=== PATIENT | female | born 1965 | race Caucasian/White ===

== ENCOUNTER → 2021-06-17 | Outpatient (CLI) | payer MEDICAID ==
[~2021-06-17] MED LIST: ACET500T68 PO; BACI1PAC4 TP; HYDR-2761 PO; KETO10TA PO; NAPR500T8 PO; PYRI60TA2 PO
--- NOTE | 2021-06-17 12:11 | RAD ---
Digital Mammogram Bilateral History: Routine screening Technique: 2-D digital CC and MLO views were obtained. CAD - computer aided detection was utilize d. Comparison: None. The patient's last mammogram was performed about 15 years ago. Findings: Breast Tissue Density B : There are scattered areas of fibroglandular density There are no suspicious masses, malignant appearing calcifications, or areas of architectural distort ion. Impression: No evidence of malignancy. Assessment: BI-RADS Category 1: Negative. Recommendation: Routine screening mammograms. The patient will receive a letter with the results in the mail. Patient information will be entered i nto the mammography reminder system with a target recall date for the next mammogram. A reminder milly er will be generated. Electronically signed by: Sima Bailey MD (06/17/2021 12:08 PM) [id number]
== END ==
LOC: MAMMO 09:25
PROVIDERS: ATTEND Family Medicine
DX: Z12.31 Encounter for screening mammogram for malignant neoplasm of breast (principal)
CPT/HCPCS: 77067

== ENCOUNTER → 2021-06-29 | Outpatient (CLI) | payer MEDICAID ==
[~2021-06-29] MED LIST changes: -HYDR-2761 PO
[2021-06-29 11:27] LABS: BASO % 1 % (0-3); EOS # 0.2 x10^3/uL (0.0-0.7); EOS % 3 % (0-3); HEMATOCRIT 43.6 % (36.0-47.0); HEMOGLOBIN 14.6 g/dL (12.0-15.5); LYMPH # 2.7 x10^3/uL (1.0-4.8); LYMPH % 39 % (24-48); MEAN CORPUSCULAR HEMOGLOBIN 31 pg (25-35); MEAN CORPUSCULAR HGB CONC 34 g/dL (31-37); MEAN CORPUSCULAR VOLUME 92 fL (79-100); MONO # 0.4 x10^3/uL (0.0-1.1); MONO % 6 % (0-9); NEUT # 3.5 x10^3/uL (1.8-7.7); NEUT % 51 % (31-73); PLATELET COUNT 206 x10^3/uL (140-400); RED BLOOD COUNT 4.72 x10^6/uL (3.50-5.40); RED CELL DISTRIBUTION WIDTH 13.4 % (11.5-14.5); WHITE BLOOD COUNT 6.9 x10^3/uL (4.0-11.0)
[2021-06-29 11:40] LABS: PROTHROMBIN TIME PATIENT 12.6 SEC (11.7-14.0)
[2021-06-29 11:43] LABS: CALCIUM 8.9 mg/dL (8.5-10.1); CREATININE 0.8 mg/dL (0.6-1.0); GFR 73.9
--- NOTE | 2021-06-29 15:47 | EKG ---
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
== END ==
LOC: SURGPAT 10:10
PROVIDERS: ATTEND Plastic Surgery
DX: Z01.812 Encounter for preprocedural laboratory examination (principal); Z20.822 Contact with and (suspected) exposure to COVID-19
CPT/HCPCS: 36415; 80048; 85025; 85610; 85730; 93005; U0003; U0005

== ENCOUNTER 2021-06-30 09:33 | Day surgery (SDC) | payer MEDICAID ==
[~2021-06-30] VITALS: Ht 170.2 cm; Wt 54.5 kg
[~2021-06-30 09:33] MED LIST changes: -ACET500T68 PO; -BACI1PAC4 TP; +CLINDAMYCIN 900MG PREMIX 50 ML IV PRN; +HYDROmorphone 2 MG/ML INJ. IVP PRN; +IV RINGERS,LACTATED 1000ML 1,000 ML IV SCH; -KETO10TA PO; +MORPHINE SULFATE 2 MG/ML INJ. IVP PRN; -NAPR500T8 PO; +PROCHLORPERAZINE 10 MG/2 ML VIAL. IVP PRN; -PYRI60TA2 PO; +fentaNYL PF VIAL 100 MCG/2 ML VIAL IVP PRN
[2021-06-30] MEDS ORDERED: KETO10TA PO (09:58)
[2021-06-30] MEDS ORDERED: PYRI60TA2 PO (09:58)
[2021-06-30] MEDS ORDERED: NAPR500T8 PO (09:58)
[2021-06-30 10:02] VITALS: BP 161/74
[2021-06-30] MEDS ORDERED: DEXAMETHASONE SOD PHOS 4 MG/ML VIAL ONE (10:55)
[2021-06-30] MEDS ORDERED: ONDANSETRON PF 4 MG/2 ML VIAL. ONE (10:55)
[2021-06-30] MEDS ORDERED: PROPOFOL 10 MG/ML (20ML) VIAL. IV ONE ×2 (10:55→11:20)
[2021-06-30] MEDS ORDERED: LIDOCAINE 2% PF 5 ML VIAL. ONE (10:55)
[2021-06-30] MEDS ORDERED: SEVOFLURANE 31 TO 60 MINUTES. IH ONE (10:55)
[2021-06-30] MEDS ORDERED: fentaNYL PF VIAL 100 MCG/2 ML VIAL ONE ×2 (10:56→14:05)
[2021-06-30] MEDS ORDERED: BACITRACIN TOPICAL OINT PACKET. TP ONE (10:57)
[2021-06-30] MEDS ORDERED: LIDOCAINE 1%/EPI 1:100,000 20 ML VIAL. ONE (10:58)
[2021-06-30] MEDS ORDERED: ePHEDrine PF IN SALINE 50 MG/10 ML SYRINGE. IV ONE (11:28)
[2021-06-30] MEDS ORDERED: PHENYLEPHRINE 10 MG/ML VIAL. ONE (11:29)
[2021-06-30] MEDS ORDERED: GLYCOPYRROLATE 1 MG/5 ML VIAL. ONE (11:31)
[2021-06-30] MEDS ORDERED: PHENYLEPHRINE in 0.9% NACL PF 1 MG/10 ML SYRINGE. IV ONE (11:53)
[2021-06-30] MEDS ORDERED: BACI1PAC4 TP (11:58)
[2021-06-30] MEDS ORDERED: ACET500T68 PO (11:58)
--- NOTE | 2021-06-30 12:04 | PDOC4 ---
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 The patient was brought to the operating room and placed on the OR table in the supine position. A timeout was completed verifying the correct patient and correct procedure. SCDs were placed. IV antibiotics were provided. General anesthesia was induced. The patient's face was cleansed with chlorhexidine. It was draped in the usual sterile fashion. A #15 scalpel was used to excise the visible 6mm diameter lesion at the medial tip of the patient's nose including an approximate 3 mm margin. The superior lesion was labeled with short suture and the 9 o'clock position was labeled with a long suture. The specimen was then sent to pathology for frozen section analysis. The first pass resulted in positive margins from 3:00 to 9:00. A caliper was used to alma 2 mm margins and the entire unit was reexcised. This was also sent for frozen section analysis. The second pass frozen section analysis returned with clear margins. Hemostasis was then assessed and assured with cautery. The final size of the defect was 0.9 x 1.1 x 0.3 cm A caliper was used to design a bilobed flap based on the right lateral nasal dorsum. The first lobe was created to the width of the defect and the second lobe was also created the width of the original defect, giving a total defect area of 1.98cm. A scalpel was used to undermine the flap deeply, just above the nasal muscle. The surrounding region was widely undermined with tenotomy scissors until a tension-free closure could be achieved. Hemostasis was again achieved with electrocautery. The vertical incision from the second lobe was closed with a running 6-0 Prolene suture. The flaps were trimmed and contoured. A back cut was made lateral to the original defect to remove a standing skin deformity. The skin of the flaps was closed primarily with 6-0 Prolene suture in a simple interrupted fashion. Antibiotic ointment, Xeroform gauze, a trimmed 4 x 4 gauze, and Steri-Strips were applied. The patient tolerated the procedure well and was transferred to the PACU in stable condition. LIZET MACIAS MD Jun 30, 2021 12:04
[2021-06-30] MEDS ORDERED: BALANCED SALT IRRIG OPHTH SOLN 15 ML BOTTLE. ONE (12:49)
[2021-06-30] MEDS: fentaNYL PF VIAL 100 MCG/2 ML VIAL IVP PRN ×2 (14:12→14:28)
[2021-06-30] MEDS ORDERED: ACETAMINOPHEN 500 MG TABLET PO ONE (14:30)
[2021-06-30 14:45] VITALS: BP 101/65
--- NOTE | 2021-07-01 18:08 | PATHOLOGY ---
[facility] Accession Number: [id number] . 01 Material submitted: . PART A: nose - RIGHT NARE LESION SHORT STITCH SUPERIOR, LONG STITCH LATERAL- FS. Modifiers: right PART B: nose - RE-EXCISION BASAL CELL OF NOSE, SHORT STITCH 3:00, LONG STITCH 12:00 . 01 Clinician provided ICD-10: n . 01 Clinical history: . FOR A- SKIN CANCER; EXCISION SKIN CANCER NOSE WITH FROZEN SECTION FOR B- CA R NARE; EXCISION CANCER R NARE . 02 Frozen section diagnosis: . INTRAOPERATIVE CONSULTATION WITH FROZEN SECTION A. Skin, right nose lesion, excision: - Nodular basal cell carcinoma; 12:00 margin clear. Tumor involvement of 3:00, 6:00, 9:00, and deep margins. . The results are reported to Dr. Garcia in the operating room. . B. Skin, basal cell nose, re-excision: - Recent biopsy site, margins free of neoplasm. . The results are reported to Dr. Garcia in the operating room. . . INTRAOPERATIVE CONSULTATION GROSS DESCRIPTION A. The specimen is received fresh for intraoperative consultation and is designated "right nose lesion, large stitch lateral, short stitch superior". This consists of a rounded segment of [place] skin measuring approximately 0.7 cm in diameter and up to 0.3 cm in thickness. There is a long suture attached at one point of the margin which denotes the lateral margin. There is a short stitch attached at another point of the margin which denotes the superior margin. There is a centrally located slightly raised pale inman lesion which is close to all margins. The 12-3-6:00 margin is inked with black ink. The 6-9:00 margin is inked with blue ink. The 9-12:00 margin is inked with orange ink. The specimen is sectioned perpendicular to the 12-6:00 axis and submitted entirely for frozen section as FSA1. . B. The specimen is received fresh and is designated "re-excision basal cell of nose". This consists of a rounded segment of [place] skin measuring up to 1.0 x 0.9 x 0.3 cm in greatest dimension. There is a central rounded hemorrhagic defect representing the previous biopsy site, which measures up to approximately 0.6 cm in diameter. There is a long suture attached at one point of the margin to note the 12:00 margin. There is a short suture attached at the 3:00 margin. The 12-3-6:00 margin is inked with black ink. The 6-9:00 margin is inked with blue ink. The 9-12:00 margin is inked with orange ink. The specimen is serially sectioned perpendicular to the 12-6:00 axis and is submitted for frozen section as FSB1. . (JPM:elastic attacher coverstitch; 06/30/2021) . Frozen section performed at [facility], [address] [facility] [facility] [place] [address]. Anya/MADINAR . 02 Diagnosis: A. Skin, right nose lesion excision: - NODULAR BASAL CELL CARCINOMA; 12:00 MARGIN CLEAR; TUMOR INVOLVEMENT OF 3:00, 6:00, 9:00, AND DEEP MARGINS. . B. Skin and subcutaneous tissue, basal cell nose re-excision: - Recent biopsy site showing recent hemorrhage and coagulative changes - no residual basal cell carcinoma identified. - Margins of excision free of malignancy. . (JPM:mml; 07/01/2021) [facility] 07/01/2021 1240 Local . 02 Electronically signed: . Ney Neff MD, Pathologist NPI- [id number] . 01 Gross description: . A, B. PLEASE SEE FROZEN SECTION GROSS DESCRIPTION [facility] 07/01/2021 1241 Local . 02 Pathologist provided ICD-10: C44.311 . 02 CPT . 147106, 957758, 546015, [id number] Specimen Comment: A courtesy copy of this report has been sent to [phone] Specimen Comment: [id number] Specimen Comment: Report sent to / DR ANTONIO Specimen Comment: A duplicate report has been generated due to demographic updates. Performed at: 01 [facility] [address] [facility] [address] [address], [place] [id number] MD Ravi Middleton MD Phone: [phone] Performed at: 02 [facility] [address] [place], [place] [id number] MD Ney Neff MD Phone: [phone]
== END 2021-06-30 15:20 | disposition home or self-care (01) ==
LOC: SURG 09:33
PROVIDERS: ATTEND Plastic Surgery
DX: C44.311 Basal cell carcinoma of skin of nose (principal); J45.909 Unspecified asthma, uncomplicated; M19.90 Unspecified osteoarthritis, unspecified site; F41.9 Anxiety disorder, unspecified; Z90.710 Acquired absence of both cervix and uterus; Z98.890 Other specified postprocedural states; Z79.899 Other long term (current) drug therapy; Z87.891 Personal history of nicotine dependence
CPT/HCPCS: 14060; A4930; A6223; A6258; A6402; J1100; J2370; J2405; J2704; J3010; J3490; A4452; A4657

== ENCOUNTER → 2021-07-03 | Outpatient (CLI) | payer MEDICAID ==
[2021-06-30 14:45] VITALS: BP 101/65
[~2021-07-03] MED LIST changes: +ACET500T68 PO; +BACI1PAC4 TP; -CLINDAMYCIN 900MG PREMIX 50 ML IV PRN; -HYDROmorphone 2 MG/ML INJ. IVP PRN; -IV RINGERS,LACTATED 1000ML 1,000 ML IV SCH; +KETO10TA PO; -MORPHINE SULFATE 2 MG/ML INJ. IVP PRN; +NAPR500T8 PO; -PROCHLORPERAZINE 10 MG/2 ML VIAL. IVP PRN; +PYRI60TA2 PO; -fentaNYL PF VIAL 100 MCG/2 ML VIAL IVP PRN
--- NOTE | 2021-07-03 09:19 | RAD ---
EXAMINATION: US ABDOMEN COMPLETE CLINICAL HISTORY: Cholelithiasis. TECHNIQUE: Grayscale sonographic imaging of the abdomen obtained with color Doppler imaging and spect ral Doppler analysis as indicated. COMPARISON: None FINDINGS: Pancreas: Grossly unremarkable on limited evaluation. Liver: - Echotexture: Normal, homogeneous. - Echogenicity: Normal - Surface contour: Smooth - Lesions: None Biliary: No intrahepatic biliary duct dilation. - CBD: 7 mm. - Gallbladder: Echogenic shadowing gallstones obscure much of the gallbladder. No evidence of wall thickening or pericholecystic fluid on limited evaluation. Spleen: - Craniocaudal length: 8.0 cm. - Lesions: None Right Kidney: - Renal length: 10.5 cm - Parenchyma: Normal parenchymal echogenicity. Normal parenchymal thickness. - Collecting system: No hydronephrosis. - Calculus: No echogenic, shadowing calculus. - Lesion: None Left Kidney: - Renal length: 11.2 cm - Parenchyma: Normal parenchymal echogenicity. Normal parenchymal thickness. - Collecting system: No hydronephrosis. - Calculus: No echogenic, shadowing calculus. - Lesion: None IVC: Imaged segments patent. Abdominal Aorta: Imaged segments patent. Ascites: None. IMPRESSION: Cholelithiasis without evidence of acute cholecystitis on somewhat limited evaluation and borderline dilated common bile duct as described. MRCP could be obtained for further evaluation if there is clin ical concern for biliary obstruction. Electronically signed by: Macario Ny DO (07/03/2021 9:17 AM) [id number]
== END ==
LOC: US 08:45
PROVIDERS: ATTEND Surgery
DX: K80.20 Calculus of gallbladder without cholecystitis without obstruction (principal)
CPT/HCPCS: 76700

== ENCOUNTER 2021-07-06 11:38 | Day surgery (SDC) | payer MEDICAID ==
[~2021-07-06] VITALS: Ht 170.2 cm; Wt 57.0 kg
[~2021-07-06 11:38] MED LIST changes: +CLINDAMYCIN 900MG PREMIX 50 ML IV PRN; +HYDROmorphone 2 MG/ML INJ. IVP PRN; +IV RINGERS,LACTATED 1000ML 1,000 ML IV SCH; +MORPHINE SULFATE 2 MG/ML INJ. IVP PRN; +PROCHLORPERAZINE 10 MG/2 ML VIAL. IVP PRN; +fentaNYL PF VIAL 100 MCG/2 ML VIAL IVP PRN
[2021-07-06] MEDS ORDERED: CLINDAMYCIN PREMIX 900 MG/50 ML BAG IV ONE (12:00)
[2021-07-06 12:04] VITALS: BP 137/77
[2021-07-06] MEDS ORDERED: SUGAMMADEX SODIUM 200 MG/2 ML VIAL. IVP ONE (13:45)
[2021-07-06] MEDS ORDERED: BUPIVACAINE-EPI 0.5% 30 ML VIAL KIT. ONE (14:43)
[2021-07-06] MEDS ORDERED: IOHEXOL 300 MG/ML 50 ML VIAL. ONE (14:43)
[2021-07-06] MEDS ORDERED: SURGICEL HEMOSTAT 4X8 EACH. ONE (14:44)
[2021-07-06] MEDS ORDERED: SEVOFLURANE 31 TO 60 MINUTES. IH ONE (14:52)
[2021-07-06] MEDS ORDERED: ROCURONIUM 50 MG/5 ML VIAL. ONE (14:52)
[2021-07-06] MEDS ORDERED: fentaNYL PF VIAL 100 MCG/2 ML VIAL ONE ×2 (14:52→17:05)
[2021-07-06] MEDS ORDERED: DEXAMETHASONE SOD PHOS 4 MG/ML VIAL ONE (14:52)
[2021-07-06] MEDS ORDERED: KETAMINE HCL IN NACL, ISO-OSM 50 MG/5 ML SYRINGE ONE (14:52)
[2021-07-06] MEDS ORDERED: PROPOFOL 10 MG/ML (20ML) VIAL. IV ONE ×2 (14:52→14:57)
[2021-07-06] MEDS ORDERED: ONDANSETRON PF 4 MG/2 ML VIAL. ONE (14:52)
[2021-07-06] MEDS ORDERED: LIDOCAINE 2% PF 5 ML VIAL. ONE (14:52)
[2021-07-06] MEDS ORDERED: GLYCOPYRROLATE 1 MG/5 ML VIAL. ONE (15:15)
[2021-07-06] MEDS ORDERED: BUPIVACAINE-EPI 0.5% 30 ML VIAL KIT. INJ ONE (15:35)
[2021-07-06] MEDS ORDERED: IOHEXOL 300 MG/ML 50 ML VIAL. IV ONE (15:35)
[2021-07-06] MEDS ORDERED: HYDROmorphone 2 MG/ML INJ. ONE (15:56)
--- NOTE | 2021-07-06 16:32 | PDOC4 ---
Operative Note Operative Note Operative Note: Preoperative Diagnosis: Calculus cholecystitis Postoperative Diagnosis: Same Procedure: Laparoscopic cholecystectomy with intraoperative cholangiogram Surgeons: Karthik Regulatory Administrator: AMARILIS Blackwell, Merrill Acevedo MS 3 Anesthesia: Gen. Estimated Blood Loss: 10 mL Specimen: Gallbladder to pathology Drains: None Complications: None Indications: The patient is a 55-year-old female who is referred with calculus cholecystitis. Surgical treatment was offered by means of a laparoscopic cholecystectomy. The risks of surgery were discussed which include bleeding, infection, bile duct injury, bile leak, pain, the potential for additional surgeries or procedures. The patient understands and would like to proceed. Description: The patient was taken to the operating room and laid supine on the operating table. General anesthesia was performed. The abdomen was prepped with ChloraPrep and draped in a standard surgical fashion. A small infraumbilical incision was made with a scalpel. The Veress needle was then inserted and a pneumoperitoneum was then created. A 5 mm trocar was then inserted and the laparoscope was introduced. In the upper midabdomen a 5 mm trocar was inserted and in the right upper quadrant two 2.3 mm mini lap graspers were inserted. The gallbladder was retracted cephalad. The gallbladder wall showed marked chronic thickening consistent with calculus cholecystitis. The cystic duct was dissected free from surrounding tissues. The cystic duct was quite dilated. We exchanged the 5 mm superior port with a 12 mm port allowing for a larger clip. One clip was placed on the duct near the gallbladder junction. An opening was made in the duct and a cholangiocatheter placed within and secured with a clip. Using contrast dye and fluoroscopy an intraoperative cholangiogram was performed that appeared unremarkable. The clip and catheter were then withdrawn. Three clips were placed on the cystic duct and it was divided. The cystic artery was then identified, dissected free, doubly clipped and divided as well. The gallbladder was then mobilized away from the liver with cautery. The gallbladder was then placed in an endoscopic bag and extracted at the superior trocar site. The fascia there was closed with an 0 Vicryl suture and infiltrated with 0.5% marcaine. All blood and irrigation fluid was suctioned and hemostasis was good. The remaining ports were removed and the pneumoperitoneum was relieved. The skin incisions were closed using 4-0 Monocryl suture. Steri-Strips and dressings were then applied. The patient tolerated the procedure well and was sent to the recovery room in stable condition. At the end of the case all counts were correct. OCTAVIA SIMS MD Jul 06, 2021 16:32
[2021-07-06] MEDS ORDERED: HYDR-2761 PO (16:34)
--- NOTE | 2021-07-06 16:36 | DISCH ---
DISCHARGE INSTRUCTIONS Condition on Discharge Condition on Discharge: Stable Activity After Discharge Activity Instructions for Disc: Other, see below (No lifting over 20 lbs X 2 weeks) Driving Instructions after Dis: Other, see below (no driving while taking pain meds) Diet after Discharge Diet after Discharge: Regular Wound Incision Care Wound/Incision Care: Other, see below (may remove bandaids tomorrow and shower, steristrips will fall off on their own) Follow-Up Follow up with: Dr Sims in 2 weeks in office, call for appt [phone] OCTAVIA SIMS MD Jul 06, 2021 16:35
--- NOTE | 2021-07-06 16:40 | RAD ---
INDICATION: Intraoperative cholangiogram. Fluoro for procedure. IMPRESSION: Fluoroscopy was utilized by the clinical service to assist with their procedure. There are 3 saved images/series. The limited saved images show contrast opacifying the cystic duct remnant, common bile duct, duodenum and proximal biliary tree. No obstruction identified. This dictation is for the usage of fluoroscopy only. Please see the clinical service's procedure note for detail on the procedure. Electronically signed by: Ean Linton MD (07/06/2021 4:38 PM) [facility]
[2021-07-06] MEDS ORDERED: HYDROcodone/APAP 5/325MG 1 TAB TABLET PO ONE (17:00)
[2021-07-06] MEDS ORDERED: PROCHLORPERAZINE 10 MG/2 ML VIAL. ONE (17:05)
[2021-07-06] MEDS: fentaNYL PF VIAL 100 MCG/2 ML VIAL IVP PRN ×2 (17:10→17:43)
[2021-07-06 17:56] VITALS: BP 118/69
--- NOTE | 2021-07-08 20:02 | PATHOLOGY ---
[facility] Accession Number: [id number] . 01 Material submitted: . gallbladder - GALLBLADDER AND CONTENTS . 01 Clinical history: . CHOLECYSTITIS LAPAROSCOPIC CHOLECYSTECTOMY . 02 Diagnosis: Gallbladder, laparoscopic cholecystectomy: - Cholelithiasis. - Chronic cholecystitis. (JPM:ricco; 07/08/2021) QMS 07/08/2021 1033 Local . 02 Comment: There is no evidence of malignancy. (JPM:ricco; 07/08/2021) . 02 Electronically signed: . Ney Neff MD, Pathologist NPI- [id number] . 01 Gross description: . Labeled: Gallbladder and contents Specimen received: An intact gallbladder specimen with a clip cystic duct margin Dimensions: 6.5 x 2.8 x 2.8 cm Serosa: [place]-purple, focally hemorrhagic, smooth, and glistening [place]: Head yellow, shaggy and cauterized Lymph node: None identified Mucosa: Head to dark brown, trabeculated, partially velvety, Wall thickness: 0.2-0.4 cm Calculi: 4.0 x 4.0 x 1.7 cm aggregate of multiple multifaceted, head-white to yellow, and brown choleliths located in the neck, body, and fundus of the specimen Lesions: None identified . A1- Last Cleaner neck, body, fundus, and the cystic duct margin. (JGG; 07/07/2021) JGG/JGG 07/08/2021 1031 Local . 02 Pathologist provided ICD-10: K80.10 . 02 CPT . 618394 Specimen Comment: A courtesy copy of this report has been sent to [phone] Specimen Comment: [id number] Specimen Comment: Report sent to / DR ANTONIO Performed at: 01 [facility] [address] [facility] [address], [place], [place] [id number] MD Ravi Middleton MD Phone: [phone] Performed at: 02 [facility] [address] [place], [place] [id number] MD Ney Neff MD Phone: [phone]
== END 2021-07-06 18:34 | disposition home or self-care (01) ==
LOC: SURG 11:38
PROVIDERS: ATTEND Surgery
DX: K80.10 Calculus of gallbladder with chronic cholecystitis without obstruction (principal); J45.909 Unspecified asthma, uncomplicated; K21.9 Gastro-esophageal reflux disease without esophagitis; F41.9 Anxiety disorder, unspecified; M19.90 Unspecified osteoarthritis, unspecified site; Z85.828 Personal history of other malignant neoplasm of skin; Z90.710 Acquired absence of both cervix and uterus; Z98.890 Other specified postprocedural states; Z79.899 Other long term (current) drug therapy; Z87.891 Personal history of nicotine dependence; Z88.0 Allergy status to penicillin; Z88.5 Allergy status to narcotic agent; Z88.8 Allergy status to other drugs, medicaments and biological substances
CPT/HCPCS: 47563; 74300; 88304; A4213; A4364; A4930; A6219; C1887; J0780; J1100; J1170; J2405; J2704; J3010; J3490; Q9967; A4452; A4657

== ENCOUNTER → 2021-10-01 | Outpatient (CLI) | payer MEDICAID ==
[~2021-10-01] MED LIST changes: -CLINDAMYCIN 900MG PREMIX 50 ML IV PRN; +HYDR-2761 PO; -HYDROmorphone 2 MG/ML INJ. IVP PRN; -IV RINGERS,LACTATED 1000ML 1,000 ML IV SCH; -MORPHINE SULFATE 2 MG/ML INJ. IVP PRN; -PROCHLORPERAZINE 10 MG/2 ML VIAL. IVP PRN; -fentaNYL PF VIAL 100 MCG/2 ML VIAL IVP PRN
--- NOTE | 2021-10-01 14:11 | KCIC ---
STUDY: MRI of the brain COMPARISON: None INDICATION:New onset of headaches after age 48, weakness. TECHNIQUE: Multiplanar multisequence imaging was obtained through the brain. No IV contrast was admi nistered. . FINDINGS: There is no evidence of intracranial hemorrhage, mass or edema. No significant signal abnormalities are identified on FLAIR or T2-weighted images. There are 2 puncta te signal abnormalities most consistent with small vessel ischemic gliosis, the first in the right an terior parietal lobe in the subcortical region and the second in the left periventricular region. No signal abnormalities on diffusion-weighted images. The ventricles and basilar cisterns are normal in size and configuration for the patients age. There is no evidence of mass effect or shift of the midline structures. Posterior fossa structures including the cerebellum and brainstem are unremarkable. Limited imaging of the orbits demonstrates no orbital abnormality. There are normal flow voids in the arteries at the level of the [place]. There is a small mucous retention cyst in the right maxillary sinus. There is a right lupe bullosa. Sinuses are otherwise unremarkable. No significant osseous abnormalities IMPRESSION: 1. No acute intracranial abnormalities. Very mild changes of small vessel ischemic gliosis. Electronically signed by: Keenan Hurley MD (10/01/2021 2:09 PM) [id number]
== END ==
LOC: KCIC MRI 12:27
PROVIDERS: ATTEND Nurse Practitioner Family
DX: I67.82 Cerebral ischemia (principal); G93.89 Other specified disorders of brain; G70.00 Myasthenia gravis without (acute) exacerbation; J34.1 Cyst and mucocele of nose and nasal sinus; R53.1 Weakness
CPT/HCPCS: 70551

== ENCOUNTER → 2021-10-23 | Outpatient (CLI) | payer MEDICAID ==
[~2021-10-23] MED LIST changes: +BACI28.34 TP; +LIDO35.4 TP
== END ==
LOC: LAB 13:46
PROVIDERS: ATTEND Plastic Surgery
DX: Z01.812 Encounter for preprocedural laboratory examination (principal); Z20.822 Contact with and (suspected) exposure to COVID-19; C44.311 Basal cell carcinoma of skin of nose
CPT/HCPCS: U0003

== ENCOUNTER 2021-10-26 08:37 | Day surgery (SDC) | payer MEDICAID ==
[~2021-10-26] VITALS: Ht 170.2 cm; Wt 57.7 kg
[~2021-10-26 08:37] MED LIST changes: -BACI28.34 TP; +CLINDAMYCIN 900MG PREMIX 50 ML IV PRN; +IV RINGERS,LACTATED 1000ML 1,000 ML IV SCH; -LIDO35.4 TP; +PROCHLORPERAZINE 10 MG/2 ML VIAL. IVP PRN; +fentaNYL PF VIAL 100 MCG/2 ML VIAL IVP PRN
[2021-10-26 08:59] VITALS: BP 122/68
[2021-10-26] MEDS ORDERED: PROPOFOL 50 ML IV ONE (09:08)
[2021-10-26] MEDS ORDERED: LIDOCAINE 2% PF 5 ML VIAL. ONE (09:08)
[2021-10-26] MEDS ORDERED: ONDANSETRON PF 4 MG/2 ML VIAL. ONE (09:09)
[2021-10-26] MEDS ORDERED: DEXTROSE 50% 25 GM / 50ML DISP.SYRIN. IV ONE (09:09)
[2021-10-26] MEDS ORDERED: DEXAMETHASONE SOD PHOS 4 MG/ML VIAL ONE (09:09)
[2021-10-26] MEDS ORDERED: fentaNYL PF VIAL 100 MCG/2 ML VIAL ONE (09:10)
[2021-10-26 09:17] LABS: BASO # 0.1 x10^3/uL (0.0-0.2); BASO % 1 % (0-3); EOS # 0.2 x10^3/uL (0.0-0.7); EOS % 3 % (0-3); HEMATOCRIT 43.1 % (36.0-47.0); HEMOGLOBIN 14.5 g/dL (12.0-15.5); LYMPH # 2.4 x10^3/uL (1.0-4.8); LYMPH % 38 % (24-48); MEAN CORPUSCULAR HEMOGLOBIN 31 pg (25-35); MEAN CORPUSCULAR HGB CONC 34 g/dL (31-37); MEAN CORPUSCULAR VOLUME 93 fL (79-100); MONO # 0.5 x10^3/uL (0.0-1.1); MONO % 7 % (0-9); NEUT # 3.4 x10^3/uL (1.8-7.7); NEUT % 52 % (31-73); PLATELET COUNT 218 x10^3/uL (140-400); RED BLOOD COUNT 4.65 x10^6/uL (3.50-5.40); RED CELL DISTRIBUTION WIDTH 13.6 % (11.5-14.5); WHITE BLOOD COUNT 6.5 x10^3/uL (4.0-11.0)
[2021-10-26] MEDS ORDERED: GELATIN SPONGE SIZE 100. ONE (10:02)
[2021-10-26] MEDS ORDERED: LIDOCAINE 1%/EPI 1:100,000 20 ML VIAL. ONE (10:03)
[2021-10-26] MEDS ORDERED: EPINEPHrine NASAL 30 MG/30 ML BOTTLE ONE (10:03)
[2021-10-26] MEDS ORDERED: BACITRACIN TOPICAL OINT PACKET. TP ONE (10:03)
[2021-10-26] MEDS ORDERED: OXYMETAZOLINE 0.05% NASAL SPRAY 30ML BOTTLE. NS ONE (10:03)
[2021-10-26] MEDS ORDERED: ROCURONIUM 50 MG/5 ML VIAL. ONE (10:15)
[2021-10-26] MEDS ORDERED: PHENYLEPHRINE in 0.9% NACL PF 1 MG/10 ML SYRINGE. IV ONE (10:23)
[2021-10-26] MEDS ORDERED: ePHEDrine PF IN SALINE 50 MG/10 ML SYRINGE. IV ONE (10:39)
[2021-10-26] MEDS ORDERED: GLYCOPYRROLATE 1 MG/5 ML VIAL. ONE (10:46)
--- NOTE | 2021-10-26 11:41 | PDOC4 ---
OPERATIVE NOTE Date: Date: October 26, 2021 Pre-Op Diagnosis: History of basal cell cancer nose Post-Op Diagnosis: Same Procedure Performed: Dermabrasion of bilobed nasal flap Surgeon: Lizet Macias MD Anesthesia Type: General LMA Blood Loss: 1 cc Specimans Obtained: None Findings: see operative note Complications: None Operative Note: Patient is a 56-year-old female with a history of basal cell carcinoma of the nose status post reconstruction with a bilobed nasal flap. She presents today for dermabrasion of the nasal flap. She understands the risks of bleeding, infection, contour irregularity, asymmetry, scarring, need for further procedures, need for revision procedures, notching of the ala. She desired to proceed. The patient was brought to the operating room and placed on the OR table in the supine position. A timeout was completed verifying the correct patient and c orrect procedure. Antibiotics were given. General anesthesia was induced. The patient was prepped with Hibiclens and draped in the usual sterile fashion. 1% lidocaine with 1: 100,000 epinephrine was used to anesthetize the region of and surrounding the nasal flap. A 4 mm bur was used to dermabraded the flap and surrounding skin along the aesthetic units of the nose. Improvement was noted. The area was cleansed with saline and dressed with Xeroform and bacitracin followed by a 4 x 4 gauze and tape. The patient tolerated procedure well and was transferred to the PACU in stable condition. LIZET MACIAS MD October 26, 2021 11:41
[2021-10-26] MEDS ORDERED: BACI28.34 TP (11:46)
[2021-10-26] MEDS ORDERED: LIDO35.4 TP (11:46)
[2021-10-26 11:53] VITALS: BP 96/62
== END 2021-10-26 12:22 | disposition home or self-care (01) ==
LOC: SURG 08:37
PROVIDERS: ATTEND Plastic Surgery
DX: C44.311 Basal cell carcinoma of skin of nose (principal); J45.909 Unspecified asthma, uncomplicated; K21.9 Gastro-esophageal reflux disease without esophagitis; M19.90 Unspecified osteoarthritis, unspecified site; F41.9 Anxiety disorder, unspecified; Z90.49 Acquired absence of other specified parts of digestive tract; Z90.710 Acquired absence of both cervix and uterus; Z98.890 Other specified postprocedural states; Z79.899 Other long term (current) drug therapy
CPT/HCPCS: 15783; 36415; 85025; A4215; A4364; A4930; J1100; J2370; J2405; J2704; J3010; J3490; A4452